=== PATIENT | male | born 1950 | race Caucasian/White ===

== ENCOUNTER 2017-03-15 08:04 | Day surgery (SDC) | payer MEDICARE, OTHER ==
[2017-03-15 08:57] LABS: INR 1.97; PROTHROMBIN TIME (PATIENT) 21.4 SECONDS (9.5-12.1)
[2017-03-15] MEDS ORDERED: LIDOCAINE 2% MDV (20MG/ML) 20ML VIAL IV ONE (14:00)
[2017-03-15] MEDS ORDERED: PROPOFOL 10 MG/ML VIAL IV ONE (14:00)
--- NOTE | 2017-03-20 10:20 | Operative Note ---
DATE OF SURGERY: 03/15/2017 SURGEON: Saumya Arce MD OPERATION: COLONOSCOPY. INDICATIONS: This is a 66-year-old male with history of colon polyps who presented for surveillance colonoscopy. POSTOPERATIVE DIAGNOSES: 1. Suboptimal bowel preparation. 2. Mildly enlarged prostate gland. ANESTHESIA: Sedation is per Anesthesia. Pulse oximetry was monitored throughout the procedure to maintain O2 saturation of 90% or greater. Supplemental oxygen was administered via nasal cannula. Cardiac and vital signs were monitored throughout the duration of the procedure, and they were stable. The procedure of colonoscopy and risks and alternatives of the procedure, including the risk of bleeding and perforation, among others, were explained to the patient who voiced understanding and agreed to have the procedure done. Physical examination was performed, and the patient was found stable for sedation. PROCEDURE: The patient was placed in the left lateral position. Sedation was initiated. A digital rectal exam was performed and showed some mild external hemorrhoids with no palpable rectal masses. An Olympus PCF-180AL colonoscope was then inserted into the rectum under direct visualization. It was advanced to the cecum without difficulty. The ileocecal valve and appendiceal orifice were identified and photographed. The colonic mucosa was carefully examined upon introduction of the colonoscope. The bowel preparation was suboptimal but no gross lesions were noted. The colonoscope was then withdrawn while carefully examining the colonic mucosal surfaces. No gross lesions were noted. In the rectum, retroflexion was performed and grade 1 internal hemorrhoids were noted. The colonoscope was then withdrawn and the procedure was terminated. The patient tolerated the procedure well without any immediate complications. He remained with stable vital signs and was transferred to the recovery room. RECOMMENDATIONS: 1. The patient should be on a high-fiber diet. 2. The patient is to have a repeat colonoscopy for surveillance in 3 years. Thank you for allowing me to participate in the care of your patient. CC: Dr. Peter OWENS
== END 2017-03-15 10:08 | disposition home or self-care (01) ==
LOC: HOP 08:04
PROVIDERS: ATTEND Internal Medicine Gastroenterology
DX: Z12.11 Encounter for screening for malignant neoplasm of colon (principal); Z86.010 Personal history of colon polyps; N40.0 Benign prostatic hyperplasia without lower urinary tract symptoms; I10 Essential (primary) hypertension; E78.00 Pure hypercholesterolemia, unspecified; E03.9 Hypothyroidism, unspecified
CPT/HCPCS: 00810; G0105; 85610

== ENCOUNTER 2018-09-30 21:45 | Emergency (ER) | payer MEDICARE, OTHER ==
[2018-09-30] MEDS ORDERED: DIAZEPAM 5 MG TABLET PO ONE (21:51)
[2018-09-30] MEDS ORDERED: HYDROCODONE/APAP 5/325MG TABLET PO ONE (21:51)
--- NOTE | 2018-09-30 21:58 | Emergency Department Record ---
History of Present Illness - General Chief complaint: Pain Stated complaint: RIGHT HIP HURTS Time Seen by Provider: 09/30/18 21:45 Source: Patient Mode of Arrival: Ambulatory Limitations: No limitations - History of Present Illness Initial comments: 68 yo male presents to ED for evaluation of right sided SI joint pain that began this morning upon awakening. Patient denies trauma to the hip or back, but reports he has been unable to sit since this evening. Patient denies abdominal pain symptoms, denies dysuria, fevers, chills, or recent illness. MD Complaint: Joint pain Onset/Timin -: Days(s) History of Same: No -: Yes Arthralgia Quality: Aching Consistency: Constant Improves with: Other (Standing) Worsens with: Other (Sitting) Associated Symptoms: Denies other symptoms - Related Data Home Medications Medication Instructions Recorded Confirmed Last Taken Amiodarone HCl 100 mg PO ASDIR 09/30/18 09/30/18 Unknown Metformin HCl 850 mg PO BID 09/30/18 09/30/18 Unknown Previous Rx's Medication Instructions Recorded Diazepam [Valium] 5 mg PO Q8H PRN #10 tab 09/30/18 Allergies Allergy/AdvReac Type Severity Reaction Status Date / Time Iodinated Contrast- Oral and Allergy HIVES Verified 03/23/15 19:05 IV Dye [Iodinated Contrast Media - IV Dye] Review of Systems Constitutional: Denies: Chills, Fever, Malaise, Night sweats Eyes: Denies: Eye discharge, Eye pain ENT: Denies: Congestion, Ear pain, Epistaxis Respiratory: Denies: Cough, Dyspnea Cardiovascular: Denies: Chest pain, Dyspnea on exertion Endocrine: Denies: Fatigue, Heat or cold intolerance Gastrointestinal: Denies: Abdominal pain, Nausea, Vomiting Genitourinary: Denies: Incontinence, Retention Musculoskeletal: Reports: Arthralgia, Back pain. Denies: Gout, Joint swelling Skin: Denies: Bruising, Change in color Neurological: Denies: Abnormal gait, Confusion, Headache, Seizure Psychiatric: Denies: Anxiety Hematological/Lymphatic: Reports: Easy bleeding, Easy bruising. Denies: Anemia , Blood Clots Past Medical History - SOCIAL HISTORY Smoking Status: Never smoker Drug Use: None - RESPIRATORY Hx Respiratory Disorders: Yes Hx Sleep Apnea: Yes Hx of CPAP: No - CARDIOVASCULAR Hx Cardio Disorders: Yes Hx Cardiac Cath: Yes Hx CHF: Yes (Dx 13 years ago) Hx Heart Attack: Yes Hx Hypertension: Yes Hx Irregular Heartbeat: Yes (A fib) Hx Coronary Stent: Yes - NEURO Hx Neuro Disorders: No - GI Hx GI Disorders: Yes Hx of Polyps: Yes Comment:: inguinal hernia cecilia - Hx Genitourinary Disorders: Yes Hx Kidney Stones: Yes Hx Renal Disease: Yes - ENDOCRINE Hx Endocrine Disorders: Yes Hx Diabetes: Yes Hx Thyroid Disease: No - MUSCULOSKELETAL Hx Musculoskeletal Disorders: Yes Hx Gout: Yes - PSYCH Hx Psych Problems: No - HEMATOLOGY/ONCOLOGY Hx Hematology/Oncology Disorders: No Hx Blood Transfusion Reaction: No Family Medical History Hx Heart Disease: Father, Mother Physical Exam - General General Appearance: Alert, Oriented x3, Cooperative, Moderate distress Limitations: No limitations - Head Head exam: Atraumatic, Normocephalic, Normal inspection Head exam detail: negative: Abrasion, Contusion, Blanca's sign, General tenderness, Hematoma, Laceration - Eye Eye exam: Normal appearance. negative: Conjunctival injection, Periorbital swelling, Periorbital tenderness, Scleral icterus - ENT Ear exam: negative: Auricular hematoma, Auricular trauma Nasal Exam: negative: Active bleeding, Discharge, Dried blood, Foreign body Mouth exam: negative: Drooling, Laceration, Muffled voice, Tongue elevation - Neck Neck exam: Normal inspection. negative: Meningismus, Tenderness - Respiratory Respiratory exam: Normal lung sounds bilaterally. negative: Rales, Respiratory distress, Rhonchi, Stridor - Cardiovascular Cardiovascular Exam: Regular rate, Normal rhythm, Normal heart sounds - GI/Abdominal GI/Abdominal exam: Soft. negative: Rebound, Rigid, Tenderness - Rectal Rectal exam: Deferred - exam: Deferred - Extremities Extremities exam: Tenderness (TTP SI joint on examination, able to flex/extend and ambulate without difficulty.). negative: Calf tenderness, Pedal edema - Back Back exam: Reports: Paraspinal tenderness (Right SI joint). Denies: CVA tenderness (R), CVA tenderness (L) - Neurological Neurological exam: Alert, Normal gait, Oriented X3 - Psychiatric Psychiatric exam: Normal affect, Normal mood - Skin Skin exam: Normal color. 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 Patient was reassessed and updated on his CT imaging result. Patient reports that he is feeling much better No clinical evidence for spinal cord compression syndrome is present on examination, symptoms appear c/w low back strain. Patient appears stable for discharge at this time. Disposition Disposition: Discharge Clinical Impression: Low back strain Qualifiers: Encounter type: initial encounter Qualified Code(s): S39.012A - Strain of muscle, fascia and tendon of lower back, initial encounter Disposition: Home, Self-Care Condition: (2) Stable Instructions: Low Back Strain (ED) Additional Instructions: Return to ED if your symptoms worsen or if you have any concerns. Valium, Ibuprofen as directed. Follow-up with your family doctor in 3-5 days as directed. Prescriptions: Diazepam [Valium] 5 mg PO Q8H PRN #10 tab PRN Reason: Pain - Mod To Severe (5-10) Forms: Patient Portal Access Time of Disposition: 23:18 Quality - Quality Measures Quality Measures: N/A - Blood Pressure Screening Does Patient Have Any of the Following: No Blood Pressure Classification: Pre-Hypertensive BP Reading Systolic Measurement: 128 Diastolic Measurement: 72 Screening for High Blood Pressure: < Pre-Hypertensive BP, F/U Documented > [ [id number]] Pre-Hypertensive Follow-up Interventions: Referral to alternative/primary care provider.
--- NOTE | 2018-10-02 18:46 | CT SCAN REPORT ---
EXAM: CT SCAN ABDOMEN/PELVIS WO CONTRAST HISTORY: RIGHT SI JOINT PAIN AND RIGHT HIP PAIN FOR EIGHT HOURS. TECHNIQUE: Axial CT scan of the abdomen and pelvis performed without oral or IV contrast at the referring physician's request. COMPARISON: CT abdomen and pelvis 09/12/15. FINDINGS: No calcified gallstones are identified within the gallbladder. Right kidney apparently surgically absent, as before. Single small calcification lower pole left kidney consistent with a currently nonobstructing intrarenal calculus. However, no hydronephrosis or hydroureter on the left identified today with no left ureteral calculus evident and no bladder calculus seen. The upper left ureteral calculi noted on the prior 09/12/15 exam are no longer evident. Very small umbilical hernia containing adipose tissue but no bowel. Evaluation of the bowel and viscera extremely limited without oral or IV contrast. Given this limitation, no definite hepatic, splenic, adrenal, pancreatic, or left renal mass identified. The IVC is again seen to be left- sided below the level of the renal vein, which is a developmental variant. Prominent diverticulosis evident in the sigmoid colon but no diverticulitis. A few diverticula in the right side of the colon as well, again with no diverticulitis evident. The appendix is probably identified as a small-caliber structure with no appendicitis evident. Mild linear fibrosis or discoid atelectasis in both lung bases. No free intraperitoneal air or free intraperitoneal fluid identified. Prominent facet joint arthropathy in the lower lumbar spine. On the prior CT, note was made of a radiolucent lesion in the right iliac bone medially at about the level of the superior aspect of the right SI joint, which was measured at about 2.6 x 2.3 x 1.6 cm in size at that time. This is again seen today and measures about 2.6 cm in craniocaudal, by 1.2 cm in transverse diameters and so appears essentially unchanged. There is no appreciable cortical destruction and this has a relatively benign appearance, as previously noted. However, because the patient now describes symptoms in the region of the right SI joint, follow-up MRI with contrast might be useful to further evaluate this lesion. IMPRESSION: 1. POST-OP RIGHT NEPHRECTOMY. 2. SINGLE TINY NONOBSTRUCTING CALCULUS LOWER POLE LEFT KIDNEY. NO HYDRONEPHROSIS OR URETERAL CALCULUS ON THE LEFT. 3. SOME MILD DIVERTICULOSIS IN THE COLON BUT NO DIVERTICULITIS EVIDENT. 4. VERY SMALL UMBILICAL HERNIA CONTAINING ADIPOSE TISSUE BUT NO BOWEL. 5. 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 6. PREVIOUSLY DESCRIBED RADIOLUCENT LESION IN THE RIGHT ILIAC BONE NEAR THE RIGHT SI JOINT AGAIN SEEN, APPEARING ESSENTIALLY UNCHANGED FROM 09/12/15, BUT BECAUSE OF THE NEW RIGHT-SIDED SYMPTOMS IN THE REGION OF THE RIGHT SI JOINT, A FOLLOW-UP MRI MAY BE USEFUL FOR FURTHER ASSESSMENT. JOB NUMBER: [id number] [facility]
== END 2018-09-30 23:26 | disposition home or self-care (01) ==
LOC: ER 21:45
DX: S39.012A Strain of muscle, fascia and tendon of lower back, initial encounter (principal); K57.90 Diverticulosis of intestine, part unspecified, without perforation or abscess without bleeding; E11.9 Type 2 diabetes mellitus without complications; I50.9 Heart failure, unspecified; I48.91 Unspecified atrial fibrillation; I10 Essential (primary) hypertension; I25.2 Old myocardial infarction; X58.XXXA Exposure to other specified factors, initial encounter
CPT/HCPCS: 74176; 99283; 99284